=== PATIENT | female | born 1960 | race Caucasian/White ===

== ENCOUNTER 2021-07-28 11:41 | Outpatient (REF) | payer OTHER, SELFPAY ==
[2021-07-28 13:36] LABS: Binax Internal Control QC Valid; Binax Lot number: 9864; Binax Now Covid-19 Ag Negative (Negative)
== END 2021-07-28 11:42 | disposition home or self-care (01) ==
LOC: HO.LAB 11:41
PROVIDERS: Visit Provider Internal Medicine
DX: Z20.822 Contact with and (suspected) exposure to COVID-19 (principal)
CPT/HCPCS: 36415; C9803